=== PATIENT | male | born 1985 | race Caucasian/White ===

== ENCOUNTER 2020-11-19 01:10 | Emergency (ER) | payer MEDICAID, SELFPAY ==
[~2020-11-19] VITALS: Ht 175.3 cm; Wt 75.3 kg
[2020-11-19 01:21] VITALS: BP 145/68
[2020-11-19] MEDS ORDERED: AZITHROMYCIN 250 MG TABLET ONE (01:58)
[2020-11-19] MEDS ORDERED: CEFTRIAXONE 1,000 MG ONE (01:58)
[2020-11-19] MEDS ORDERED: DIPH,PERTUSS(ACELL),TET VAC/PF 0.5 ML IM-VACC ONE (01:59)
[2020-11-19] MEDS ORDERED: CEFTRIAXONE 1,000 MG IM ONE (02:00)
[2020-11-19] MEDS ORDERED: AZITHROMYCIN 500 MG TABLET PO ONE (02:00)
[2020-11-19] MEDS ORDERED: DIPH,PERTUSS(ACELL),TET VAC/PF NC IM-VACC ONE (02:00)
[2020-11-19] MEDS ORDERED: NEOSPORIN OINT. PKT 1 PACKET ONE (02:35)
== END 2020-11-19 02:44 | disposition home or self-care (01) ==
LOC: ED 02:15
DX: L03.113 Cellulitis of right upper limb (principal); L02.413 Cutaneous abscess of right upper limb; M25.531 Pain in right wrist; R21 Rash and other nonspecific skin eruption; F17.210 Nicotine dependence, cigarettes, uncomplicated; A64 Unspecified sexually transmitted disease; Z72.9 Problem related to lifestyle, unspecified
CPT/HCPCS: 87491; 87591; 90471; 90715; 96374; 99284; 99406; J0696